=== PATIENT | female | born 1980 | race Two or more races ===

== ENCOUNTER 2016-11-03 16:01 | Inpatient (IN) | payer MEDICAID ==
[~2016-11-03] VITALS: Ht 175.3 cm; Wt 60.0 kg
[2016-11-03 17:25] LABS: Basophils # (auto) 0 uL; Basophils % (auto) 0.4 % (0.0-2.0); DEFINITIVE VIEW TRANSMISSION; Eosinophils # (auto) 0 uL; Eosinophils % (auto) 0.3 % (0.0-7.0); Hematocrit 33.1 % (36.0-46.0); Hemoglobin 10.2 g/dL (12.2-16.2); Lymphocytes # (auto) 1.3 uL; Lymphocytes % (auto) 14.2 % (10.0-50.0); Mean Corpuscular Hemoglobin 21.5 pg (28.0-32.0); Mean Corpuscular Hgb Conc. 30.9 g/dL (32.0-36.0); Mean Corpuscular Volume 69.6 fL (80.0-100.0); Mean Platelet Volume 8.1 fL (7.4-10.4); Monocytes # (auto) 0.5 uL; Monocytes % (auto) 5.3 % (0.0-12.0); Neutrophils # (auto) 7.3 uL; Neutrophils % (auto) 79.8 % (37.0-80.0); Platelet Count (auto) 372 10^3/uL (140-450); Red Cell Distribution Width 16.6 % (11.6-16.0); White Blood Cell 9.2 10^3/uL (4.4-10.8)
[2016-11-03 17:58] LABS: Albumin 3.7 g/dL (3.4-5.0); Alkaline Phosphatase 99 U/L (45-117); Anion Gap 7 (5-15); Aspartate Aminotransferase 14 U/L (15-37); BUN/Creatinine Ratio 17.9; Bilirubin, Total 0.8 mg/dL (0.2-1.0); Blood Urea Nitrogen 12 mg/dL (7-18); Calcium 8.6 mg/dL (8.5-10.1); Carbon Dioxide 28 mmol/L (21-32); Chloride 105 mmol/L (98-107); GFR African American 130 mL/min; GFR Non-African American 107 mL/min; Glucose 96 mg/dL (74-106); Potassium 4.2 mmol/L (3.5-5.1); Sodium 140 mmol/L (136-145); Total Protein 8.5 g/dL (6.4-8.2)
[2016-11-03] MEDS ORDERED: LIDOCAINE W/ EPINEPHRINE 1% 20ML VIAL SC ONE (22:15)
[2016-11-03] MEDS ORDERED: LORazepam 2MG/ML-1ML VIAL ONE (22:31)
[2016-11-03] MEDS ORDERED: HYDROmorphone HCL 2 MG/ML VL ONE (22:52)
[2016-11-03] MEDS ORDERED: ONDANSETRON HCL 4 MG/2 ML VIAL ONE (22:55)
[2016-11-03] MEDS ORDERED: LORazepam 2MG/ML-1ML VIAL IV ONE (23:00)
[2016-11-03] MEDS ORDERED: HYDROmorphone HCL 2 MG/ML VL IV ONE (23:00)
[2016-11-03] MEDS ORDERED: ONDANSETRON HCL 4 MG/2 ML VIAL IV ONE (23:00)
[2016-11-04] VITALS (7 sets, daily range): BP systolic 101–113; BP diastolic 66–85
[2016-11-04] MEDS ORDERED: TEMAZEPAM 15 MG CAP PO PRN (02:30)
[2016-11-04] MEDS ORDERED: ACETAMINOPHEN 325 MG TAB PO PRN (02:30)
[2016-11-04] MEDS ORDERED: MORPHINE SULF INJ 2 MG/ML SYRINGE 1ML IV PRN (02:30)
[2016-11-04] MEDS ORDERED: NITROGLYCERIN 0.4 MG SL TAB SL PRN (02:30)
[2016-11-04 02:47] LABS: Urine Bilirubin Negative (Negative); Urine Color Yellow (Yellow); Urine Glucose Normal (Normal); Urine Ketone TRACE (Negative); Urine Mucus FEW (None Seen); Urine RBC 235 /hpf (0 - 4); Urine Squamous Epithelial Cell FEW /hpf (<5); Urine Urobilinogen Normal (Negative); Urine WBC Clumps PRESENT /hpf (None Seen)
[2016-11-04 02:48] LABS: Urine Blood 2+ /uL (Negative); Urine Nitrite POSITIVE (Negative)
[2016-11-04] MEDS: SODIUM CHLORIDE 0.9% 1,000 ML IV SCH ×2 (03:17→19:40)
[2016-11-04] MEDS ORDERED: IBUP800T24 PO (05:51)
[2016-11-04] MEDS: FAMOTIDINE 20 MG TAB PO SCH ×2 (09:06→21:19)
[2016-11-04] MEDS: ENOXAPARIN SOD 40 MG/0.4 ML SYRINGE SC SCH (09:07)
[2016-11-04] MEDS ORDERED: ENOXAPARIN SOD 30 MG/0.3 ML SYRINGE SC SCH (10:00)
[2016-11-05] VITALS (7 sets, daily range): BP systolic 94–107; BP diastolic 58–71
[2016-11-05 06:26] LABS: Basophils # (auto) 0 uL; Basophils % (auto) 0.7 % (0.0-2.0); DEFINITIVE VIEW TRANSMISSION; Eosinophils # (auto) 0.1 uL; Eosinophils % (auto) 1.5 % (0.0-7.0); Hematocrit 34.6 % (36.0-46.0); Hemoglobin 10.6 g/dL (12.2-16.2); Lymphocytes # (auto) 1.2 uL; Lymphocytes % (auto) 23.3 % (10.0-50.0); Mean Corpuscular Hemoglobin 21.6 pg (28.0-32.0); Mean Corpuscular Hgb Conc. 30.5 g/dL (32.0-36.0); Mean Corpuscular Volume 70.7 fL (80.0-100.0); Mean Platelet Volume 8.4 fL (7.4-10.4); Monocytes # (auto) 0.4 uL; Monocytes % (auto) 7.4 % (0.0-12.0); Neutrophils # (auto) 3.4 uL; Neutrophils % (auto) 67.1 % (37.0-80.0); Platelet Count (auto) 344 10^3/uL (140-450); Red Cell Distribution Width 16.3 % (11.6-16.0); White Blood Cell 5.1 10^3/uL (4.4-10.8)
[2016-11-05 06:43] LABS: Albumin 3.7 g/dL (3.4-5.0); BUN/Creatinine Ratio 13.4; Calcium 8.6 mg/dL (8.5-10.1); Potassium 3.8 mmol/L (3.5-5.1)
[2016-11-05 06:46] LABS: Bilirubin, Total 1.1 mg/dL (0.2-1.0); Total Protein 8.6 g/dL (6.4-8.2)
[2016-11-05] MEDS: ENOXAPARIN SOD 40 MG/0.4 ML SYRINGE SC SCH (09:07)
[2016-11-05] MEDS: FAMOTIDINE 20 MG TAB PO SCH ×2 (09:07→20:02)
[2016-11-05] MEDS: SODIUM CHLORIDE 0.9% 1,000 ML IV SCH (12:39)
[2016-11-05] MEDS: HYDROcodone-ACET 5/325MG TAB PO PRN (17:19)
[2016-11-05] MEDS: MORPHINE SULF INJ 2 MG/ML SYRINGE 1ML IV PRN (20:03)
[2016-11-06] MEDS: SODIUM CHLORIDE 0.9% 1,000 ML IV SCH ×2 (04:10→21:04)
[2016-11-06 04:47] VITALS: BP 101/69
[2016-11-06 08:50] VITALS: BP 118/75
[2016-11-06] MEDS: ENOXAPARIN SOD 40 MG/0.4 ML SYRINGE SC SCH (10:38)
[2016-11-06] MEDS: FAMOTIDINE 20 MG TAB PO SCH ×2 (10:38→22:38)
[2016-11-06 12:49] VITALS: BP 118/79
[2016-11-06] MEDS ORDERED: GASTROGRAFIN 30 ML SOL ONE (13:08)
[2016-11-06] MEDS ORDERED: IOHEXOL 300 MG/ML 100ML BOTTLE IJ ONE (13:08)
[2016-11-06] MEDS: HYDROcodone-ACET 5/325MG TAB PO PRN ×2 (13:44→21:09)
[2016-11-06] MEDS: MORPHINE SULF INJ 2 MG/ML SYRINGE 1ML IV PRN (16:26)
[2016-11-06] MEDS: HYDROmorphone HCL 2 MG/ML VL IV PRN ×2 (17:46→22:38)
[2016-11-06 20:10] VITALS: BP 120/78
[2016-11-06] MEDS: ONDANSETRON HCL 4 MG/2 ML VIAL IV PRN (20:55)
[2016-11-06 22:00] VITALS: BP 120/78
[2016-11-07 05:00] VITALS: BP 90/53
[2016-11-07] MEDS: ONDANSETRON HCL 4 MG/2 ML VIAL IV PRN ×2 (05:33→10:08)
[2016-11-07] MEDS: SODIUM CHLORIDE 0.9% 1,000 ML IV SCH (05:41)
[2016-11-07] MEDS: HYDROcodone-ACET 5/325MG TAB PO PRN (06:00)
[2016-11-07 06:47] LABS: DEFINITIVE VIEW TRANSMISSION; Hemoglobin 10.3 g/dL (12.2-16.2); Mean Corpuscular Hemoglobin 21.9 pg (28.0-32.0); Mean Corpuscular Hgb Conc. 31.3 g/dL (32.0-36.0); Mean Corpuscular Volume 70.1 fL (80.0-100.0); Mean Platelet Volume 8.9 fL (7.4-10.4); Platelet Count (auto) 345 10^3/uL (140-450); Red Cell Distribution Width 16.2 % (11.6-16.0); SUSPECT VIEW TRANSMISSION; White Blood Cell 24.6 10^3/uL (4.4-10.8)
[2016-11-07 07:12] LABS: Metamyelocytes % 0; Myelocytes % 0; Promyelocytes % 0; Reactive Lymphocytes 0
[2016-11-07 07:18] LABS: Albumin 3.5 g/dL (3.4-5.0); Potassium 3.6 mmol/L (3.5-5.1)
[2016-11-07 07:25] LABS: BUN/Creatinine Ratio 9.1; Bilirubin, Total 1.8 mg/dL (0.2-1.0); Calcium 8.7 mg/dL (8.5-10.1); Total Protein 8.3 g/dL (6.4-8.2)
[2016-11-07 09:00] VITALS: BP 110/66
[2016-11-07] MEDS: FAMOTIDINE 20 MG TAB PO SCH (10:08)
[2016-11-07] MEDS: ENOXAPARIN SOD 40 MG/0.4 ML SYRINGE SC SCH (10:09)
[2016-11-07 10:31] LABS: Platelet Estimate Adequate
[2016-11-07 10:34] LABS: Anisocytosis Moderate; Microcytosis Moderate
[2016-11-07 11:12] LABS: DEFINITIVE VIEW TRANSMISSION; Hematocrit 31.2 % (36.0-46.0); Hemoglobin 9.8 g/dL (12.2-16.2); Mean Corpuscular Hemoglobin 21.8 pg (28.0-32.0); Mean Corpuscular Hgb Conc. 31.4 g/dL (32.0-36.0); Mean Corpuscular Volume 69.6 fL (80.0-100.0); Mean Platelet Volume 8.3 fL (7.4-10.4); Platelet Count (auto) 290 10^3/uL (140-450); Red Cell Distribution Width 16.3 % (11.6-16.0); SUSPECT VIEW TRANSMISSION; White Blood Cell 19.1 10^3/uL (4.4-10.8)
[2016-11-07 11:21] LABS: Metamyelocytes % 0; Myelocytes % 0; Promyelocytes % 0; Reactive Lymphocytes 0
[2016-11-07 13:00] VITALS: BP 97/57
[2016-11-07 13:53] LABS: Microcytosis Marked; Platelet Estimate Adequate
[2016-11-07 13:54] LABS: Anisocytosis Moderate; Hypochromia Moderate; Ovalocytes FEW
[2016-11-07 13:55] LABS: Burr Cells FEW
[2016-11-07 17:47] VITALS: BP 98/60
[2016-11-07 17:54] VITALS: BP 98/60
== END 2016-11-07 19:09 | disposition home or self-care (01) | DRG 143 ==
LOC: ER 16:09 → TELE 16:10 → TELE-WESTW 11-04 04:20
PROVIDERS: ADMIT Nurse Practitioner; ATTEND Internal Medicine
DX: J93.83 Other pneumothorax (principal); N13.2 Hydronephrosis with renal and ureteral calculous obstruction; N39.0 Urinary tract infection, site not specified; D50.9 Iron deficiency anemia, unspecified; Z83.3 Family history of diabetes mellitus
CPT/HCPCS: 32551; 36415; 71010; 71020; 74177; 76775; 80053; 81001; 81025; 82728; 84484; 85007; 85025; 85027; 93005; 96374; 96375; 99291; C1751; J2405

== ENCOUNTER 2016-11-23 09:21 | Inpatient (IN) | payer MEDICAID ==
[~2016-11-23] VITALS: Ht 175.3 cm; Wt 60.4 kg
[~2016-11-23 09:21] MED LIST: IBUP800T24 PO
[2016-11-23] MEDS ORDERED: KETOROLAC TROMETH 30 MG/ML 1ML VIAL IV ONE (10:30)
[2016-11-23] MEDS ORDERED: ALBUTEROL SULF 2.5 MG/0.5ML(0.5%) NEB SOLN NEB ONE (10:30)
[2016-11-23] MEDS ORDERED: SODIUM CHLORIDE 0.9% 1,000 ML IV ONE (10:30)
[2016-11-23 11:07] LABS: Basophils # (auto) 0 uL; Basophils % (auto) 0.7 % (0.0-2.0); DEFINITIVE VIEW TRANSMISSION; Eosinophils # (auto) 0 uL; Eosinophils % (auto) 0.6 % (0.0-7.0); Hematocrit 28.9 % (36.0-46.0); Hemoglobin 9.1 g/dL (12.2-16.2); Lymphocytes # (auto) 1.2 uL; Lymphocytes % (auto) 19.9 % (10.0-50.0); Mean Corpuscular Hgb Conc. 31.4 g/dL (32.0-36.0); Mean Corpuscular Volume 70.2 fL (80.0-100.0); Mean Platelet Volume 7.9 fL (7.4-10.4); Monocytes # (auto) 0.4 uL; Monocytes % (auto) 6.8 % (0.0-12.0); Neutrophils # (auto) 4.2 uL; Platelet Count (auto) 507 10^3/uL (140-450); Red Cell Distribution Width 18.8 % (11.6-16.0); White Blood Cell 5.9 10^3/uL (4.4-10.8)
[2016-11-23 11:23] LABS: Albumin 3.4 g/dL (3.4-5.0); Alkaline Phosphatase 107 U/L (45-117); Anion Gap 8 (5-15); Aspartate Aminotransferase 15 U/L (15-37); BUN/Creatinine Ratio 19.2; Bilirubin, Total 1.1 mg/dL (0.2-1.0); Blood Urea Nitrogen 10 mg/dL (7-18); Calcium 8.5 mg/dL (8.5-10.1); Carbon Dioxide 27 mmol/L (21-32); Chloride 103 mmol/L (98-107); GFR African American 173 mL/min; GFR Non-African American 143 mL/min; Glucose 95 mg/dL (74-106); Potassium 3.8 mmol/L (3.5-5.1); Sodium 138 mmol/L (136-145); Total Protein 7.9 g/dL (6.4-8.2)
[2016-11-23] MEDS ORDERED: PROMETHAZINE HCL 25 MG/ML 1ML IV PRN (13:15)
[2016-11-23] MEDS ORDERED: NITROGLYCERIN 0.4 MG SL TAB SL PRN (13:15)
[2016-11-23] MEDS ORDERED: ACETAMINOPHEN 500 MG TAB PO PRN (13:15)
[2016-11-23] MEDS ORDERED: ALBUTEROL SULF 2.5 MG/0.5ML(0.5%) NEB SOLN NEB PRN (13:15)
[2016-11-23] MEDS ORDERED: TEMAZEPAM 15 MG CAP PO PRN (13:15)
[2016-11-23] MEDS ORDERED: MORPHINE SULF INJ 2 MG/ML SYRINGE 1ML IV PRN (13:15)
[2016-11-23] MEDS: SODIUM CHLORIDE 0.9% 1,000 ML IV SCH (13:44)
[2016-11-23 18:30] VITALS: BP 103/71
[2016-11-23] MEDS: ALBUTEROL SULF 2.5 MG/0.5ML(0.5%) NEB SOLN NEB SCH ×2 (19:11→23:52)
[2016-11-23 20:42] VITALS: BP 103/71
[2016-11-23 22:00] VITALS: BP 112/64
[2016-11-24] MEDS: SODIUM CHLORIDE 0.9% 1,000 ML IV SCH ×2 (02:36→16:00)
[2016-11-24] MEDS: HYDROcodone-ACET 5/325MG TAB PO PRN ×2 (02:37→16:01)
[2016-11-24 05:30] VITALS: BP 111/67
[2016-11-24] MEDS: ALBUTEROL SULF 2.5 MG/0.5ML(0.5%) NEB SOLN NEB SCH ×3 (06:00→18:27)
[2016-11-24 06:06] LABS: Basophils # (auto) 0 uL; Basophils % (auto) 0.6 % (0.0-2.0); DEFINITIVE VIEW TRANSMISSION; Eosinophils # (auto) 0.1 uL; Eosinophils % (auto) 0.9 % (0.0-7.0); Hematocrit 28.1 % (36.0-46.0); Hemoglobin 8.8 g/dL (12.2-16.2); Lymphocytes # (auto) 1.4 uL; Lymphocytes % (auto) 22.9 % (10.0-50.0); Mean Corpuscular Hgb Conc. 31.4 g/dL (32.0-36.0); Mean Corpuscular Volume 70.2 fL (80.0-100.0); Mean Platelet Volume 8.2 fL (7.4-10.4); Monocytes # (auto) 0.5 uL; Monocytes % (auto) 8.3 % (0.0-12.0); Neutrophils # (auto) 4.1 uL; Neutrophils % (auto) 67.3 % (37.0-80.0); Platelet Count (auto) 427 10^3/uL (140-450); Red Cell Distribution Width 18.8 % (11.6-16.0)
[2016-11-24] MEDS ORDERED: LEVO-28 PO (07:29)
[2016-11-24 09:00] VITALS: BP 107/64
[2016-11-24 13:00] VITALS: BP 113/73
[2016-11-24] MEDS ORDERED: LIDOCAINE 1% HCL (LOCAL ANESTH.) INJ 20ML MDV ONE (14:16)
[2016-11-24 14:27] LABS: INR 1.01 (0.9-1.15); Partial Thromboplastin Time 26.4 sec (22.64-33.71)
[2016-11-24] MEDS ORDERED: MIDAZOLAM HCL 1MG/1ML-2 ML VIAL ONE (14:31)
[2016-11-24] MEDS ORDERED: HYDROmorphone HCL 2 MG/ML VL ONE (14:51)
[2016-11-24] MEDS ORDERED: HYDROmorphone HCL 2 MG/ML VL IV ONE (14:55)
[2016-11-24] MEDS ORDERED: MIDAZOLAM HCL 1MG/1ML-2 ML VIAL IV ONE (15:15)
[2016-11-24 16:47] VITALS: BP 117/77
[2016-11-24] MEDS: MORPHINE SULF INJ 2 MG/ML SYRINGE 1ML IV PRN (20:12)
[2016-11-24 21:33] VITALS: BP 119/82
[2016-11-25] MEDS: ALBUTEROL SULF 2.5 MG/0.5ML(0.5%) NEB SOLN NEB SCH ×5 (00:28→23:58)
[2016-11-25] MEDS: MORPHINE SULF INJ 2 MG/ML SYRINGE 1ML IV PRN ×5 (00:56→21:01)
[2016-11-25 04:31] VITALS: BP 108/73
[2016-11-25] MEDS: SODIUM CHLORIDE 0.9% 1,000 ML IV SCH ×2 (05:39→18:33)
[2016-11-25] MEDS: HYDROcodone-ACET 5/325MG TAB PO PRN (08:54)
[2016-11-25 09:00] VITALS: BP 139/72
[2016-11-25 13:00] VITALS: BP 113/77
[2016-11-25 16:27] VITALS: BP 113/74
[2016-11-25] MEDS: DOCUSATE SOD 100 MG CAP PO SCH (21:01)
[2016-11-25] MEDS: MILK OF MAGNESIA 30ML SUSP PO PRN (21:02)
[2016-11-25 21:32] VITALS: BP 124/78
[2016-11-26 04:32] VITALS: BP 129/68
[2016-11-26] MEDS: ALBUTEROL SULF 2.5 MG/0.5ML(0.5%) NEB SOLN NEB SCH ×3 (06:17→19:13)
[2016-11-26] MEDS: SODIUM CHLORIDE 0.9% 1,000 ML IV SCH ×2 (07:53→21:13)
[2016-11-26] MEDS: MORPHINE SULF INJ 2 MG/ML SYRINGE 1ML IV PRN ×2 (08:08→21:58)
[2016-11-26 09:00] VITALS: BP 100/65
[2016-11-26] MEDS: DOCUSATE SOD 100 MG CAP PO SCH ×2 (10:24→21:57)
[2016-11-26] MEDS: MILK OF MAGNESIA 30ML SUSP PO PRN (10:24)
[2016-11-26 13:00] VITALS: BP 101/60
[2016-11-26 17:00] VITALS: BP 107/78
[2016-11-26 22:00] VITALS: BP 107/67
[2016-11-27] MEDS: ALBUTEROL SULF 2.5 MG/0.5ML(0.5%) NEB SOLN NEB SCH ×4 (00:34→18:48)
[2016-11-27 05:44] VITALS: BP 109/69
[2016-11-27 08:00] VITALS: BP 111/67
[2016-11-27] MEDS: DOCUSATE SOD 100 MG CAP PO SCH ×2 (09:26→21:49)
[2016-11-27] MEDS: SODIUM CHLORIDE 0.9% 1,000 ML IV SCH ×2 (10:33→23:43)
[2016-11-27 13:00] VITALS: BP 102/73
[2016-11-27 17:00] VITALS: BP 115/79
[2016-11-27] MEDS: LORazepam 0.5 MG TAB PO PRN (17:24)
[2016-11-27 22:00] VITALS: BP 114/80
[2016-11-28] MEDS: ALBUTEROL SULF 2.5 MG/0.5ML(0.5%) NEB SOLN NEB SCH ×5 (00:27→20:38)
[2016-11-28 05:00] VITALS: BP 108/70
[2016-11-28] MEDS ORDERED: IOHEXOL 300 MG/ML 100ML BOTTLE IJ ONE (08:58)
[2016-11-28 09:00] VITALS: BP 114/73
[2016-11-28] MEDS: DOCUSATE SOD 100 MG CAP PO SCH ×2 (10:00→19:34)
[2016-11-28 13:00] VITALS: BP 101/60
[2016-11-28] MEDS: SODIUM CHLORIDE 0.9% 1,000 ML IV SCH (13:13)
[2016-11-28] MEDS ORDERED: MIDAZOLAM HCL 1MG/1ML-2 ML VIAL ONE (14:52)
[2016-11-28] MEDS ORDERED: FLUMAZENIL 0.1 MG/ML INJ 10ML MDV IV ONE (14:52)
[2016-11-28] MEDS ORDERED: NALOXONE HCL 0.4 MG/ML VIAL ONE (14:52)
[2016-11-28] MEDS ORDERED: fentaNYL CITRATE 100 MCG/2 ML VL ONE (14:52)
[2016-11-28] MEDS ORDERED: LIDOCAINE 1% HCL (LOCAL ANESTH.) INJ 20ML MDV ONE (15:05)
[2016-11-28 17:00] VITALS: BP 104/65
[2016-11-28] MEDS: MORPHINE SULF INJ 2 MG/ML SYRINGE 1ML IV PRN (20:11)
[2016-11-28 22:00] VITALS: BP 114/69
[2016-11-29] MEDS: SODIUM CHLORIDE 0.9% 1,000 ML IV SCH ×2 (02:33→17:12)
[2016-11-29 02:50] VITALS: BP 114/69
[2016-11-29 05:00] VITALS: BP 111/71
[2016-11-29] MEDS: ALBUTEROL SULF 2.5 MG/0.5ML(0.5%) NEB SOLN NEB SCH ×3 (06:18→18:00)
[2016-11-29 08:08] VITALS: BP 100/72
[2016-11-29] MEDS: DOCUSATE SOD 100 MG CAP PO SCH ×2 (10:23→21:49)
[2016-11-29 11:47] VITALS: BP 103/66
[2016-11-29 16:27] VITALS: BP 104/63
[2016-11-29 21:46] VITALS: BP 96/73
[2016-11-29] MEDS: MORPHINE SULF INJ 2 MG/ML SYRINGE 1ML IV PRN (22:41)
[2016-11-30] MEDS: ALBUTEROL SULF 2.5 MG/0.5ML(0.5%) NEB SOLN NEB SCH ×4 (00:26→18:25)
[2016-11-30] MEDS: SODIUM CHLORIDE 0.9% 1,000 ML IV SCH ×2 (05:13→18:10)
[2016-11-30 05:21] VITALS: BP 103/65
[2016-11-30 08:03] VITALS: BP 105/64
[2016-11-30] MEDS: DOCUSATE SOD 100 MG CAP PO SCH ×2 (09:48→21:05)
[2016-11-30 11:26] VITALS: BP 105/65
[2016-11-30 16:00] VITALS: BP 110/66
[2016-11-30] MEDS: BOOST PLUS 8 ounce PO SCH (21:06)
[2016-11-30 21:26] VITALS: BP 103/63
[2016-12-01 04:58] VITALS: BP 100/62
[2016-12-01] MEDS: BOOST PLUS 8 ounce PO SCH ×3 (06:28→21:28)
[2016-12-01] MEDS: ALBUTEROL SULF 2.5 MG/0.5ML(0.5%) NEB SOLN NEB SCH ×4 (06:39→18:53)
[2016-12-01] MEDS: SODIUM CHLORIDE 0.9% 1,000 ML IV SCH ×2 (07:53→21:27)
[2016-12-01 09:15] VITALS: BP 104/68
[2016-12-01] MEDS: DOCUSATE SOD 100 MG CAP PO SCH ×2 (10:16→21:27)
[2016-12-01 13:00] VITALS: BP 98/59
[2016-12-01 17:00] VITALS: BP 95/61
[2016-12-01] MEDS: MORPHINE SULF INJ 2 MG/ML SYRINGE 1ML IV PRN (21:27)
[2016-12-01 22:00] VITALS: BP 114/69
[2016-12-01 22:36] VITALS: BP 95/61
[2016-12-02] MEDS: ALBUTEROL SULF 2.5 MG/0.5ML(0.5%) NEB SOLN NEB SCH ×4 (00:19→19:36)
[2016-12-02 05:00] VITALS: BP 102/63
[2016-12-02] MEDS: BOOST PLUS 8 ounce PO SCH ×3 (06:00→21:38)
[2016-12-02 06:35] LABS: BUN/Creatinine Ratio 26.5; Calcium 8.4 mg/dL (8.5-10.1); Potassium 3.7 mmol/L (3.5-5.1)
[2016-12-02 09:00] VITALS: BP 109/71
[2016-12-02] MEDS: DOCUSATE SOD 100 MG CAP PO SCH ×2 (10:29→21:38)
[2016-12-02] MEDS: SODIUM CHLORIDE 0.9% 1,000 ML IV SCH ×2 (11:16→23:40)
[2016-12-02] MEDS: LORazepam 0.5 MG TAB PO PRN ×2 (11:37→11:43)
[2016-12-02 13:00] VITALS: BP 107/74
[2016-12-02 16:25] VITALS: BP 106/72
[2016-12-02 22:00] VITALS: BP 110/62
[2016-12-03 05:00] VITALS: BP 108/69
[2016-12-03 05:21] LABS: Basophils # (auto) 0.1 uL; DEFINITIVE VIEW TRANSMISSION; Eosinophils # (auto) 0.3 uL; Eosinophils % (auto) 6.2 % (0.0-7.0); Hematocrit 31.3 % (36.0-46.0); Hemoglobin 9.8 g/dL (12.2-16.2); Lymphocytes # (auto) 1.5 uL; Lymphocytes % (auto) 27.8 % (10.0-50.0); Mean Corpuscular Hemoglobin 22.1 pg (28.0-32.0); Mean Corpuscular Hgb Conc. 31.5 g/dL (32.0-36.0); Mean Corpuscular Volume 70.2 fL (80.0-100.0); Mean Platelet Volume 8.8 fL (7.4-10.4); Monocytes # (auto) 0.4 uL; Monocytes % (auto) 8.3 % (0.0-12.0); Neutrophils % (auto) 56.7 % (37.0-80.0); Platelet Count (auto) 235 10^3/uL (140-450); Red Cell Distribution Width 18.5 % (11.6-16.0); SUSPECT VIEW TRANSMISSION; White Blood Cell 5.3 10^3/uL (4.4-10.8)
[2016-12-03 05:42] LABS: BUN/Creatinine Ratio 26.5; Calcium 8.4 mg/dL (8.5-10.1); Potassium 3.9 mmol/L (3.5-5.1)
[2016-12-03] MEDS: BOOST PLUS 8 ounce PO SCH ×3 (06:00→22:00)
[2016-12-03] MEDS: ALBUTEROL SULF 2.5 MG/0.5ML(0.5%) NEB SOLN NEB SCH ×4 (06:58→18:45)
[2016-12-03 09:00] VITALS: BP 114/72
[2016-12-03] MEDS: DOCUSATE SOD 100 MG CAP PO SCH ×2 (11:07→22:12)
[2016-12-03 13:00] VITALS: BP 107/66
[2016-12-03] MEDS: SODIUM CHLORIDE 0.9% 1,000 ML IV SCH (13:18)
[2016-12-03] MEDS: LORazepam 0.5 MG TAB PO PRN ×2 (13:25→22:12)
[2016-12-03 17:07] VITALS: BP 121/72
[2016-12-03 19:21] LABS: INR 1.01 (0.9-1.15); Partial Thromboplastin Time 25.9 sec (22.64-33.71)
[2016-12-03 22:03] VITALS: BP 118/72
[2016-12-04] MEDS: MORPHINE SULF INJ 2 MG/ML SYRINGE 1ML IV PRN ×4 (00:21→14:36)
[2016-12-04] MEDS: SODIUM CHLORIDE 0.9% 1,000 ML IV SCH ×2 (02:44→15:53)
[2016-12-04 04:49] VITALS: BP 99/71
[2016-12-04 05:36] LABS: Basophils # (auto) 0 uL; Basophils % (auto) 0.9 % (0.0-2.0); DEFINITIVE VIEW TRANSMISSION; Eosinophils # (auto) 0.4 uL; Eosinophils % (auto) 6.8 % (0.0-7.0); Hematocrit 30.9 % (36.0-46.0); Lymphocytes # (auto) 1.6 uL; Lymphocytes % (auto) 29.8 % (10.0-50.0); Mean Corpuscular Hemoglobin 22.4 pg (28.0-32.0); Mean Corpuscular Hgb Conc. 32.2 g/dL (32.0-36.0); Mean Corpuscular Volume 69.5 fL (80.0-100.0); Mean Platelet Volume 8.9 fL (7.4-10.4); Monocytes # (auto) 0.5 uL; Monocytes % (auto) 8.3 % (0.0-12.0); Neutrophils % (auto) 54.2 % (37.0-80.0); Platelet Count (auto) 236 10^3/uL (140-450); White Blood Cell 5.5 10^3/uL (4.4-10.8)
[2016-12-04] MEDS: BOOST PLUS 8 ounce PO SCH ×3 (06:00→22:00)
[2016-12-04] MEDS: ALBUTEROL SULF 2.5 MG/0.5ML(0.5%) NEB SOLN NEB SCH ×4 (07:30→18:32)
[2016-12-04 09:00] VITALS: BP 103/67
[2016-12-04] MEDS ORDERED: NEOSTIGMINE 1 MG/ML INJ (10mg/10ML VIAL) IV ONE (09:00)
[2016-12-04] MEDS ORDERED: GLYCOPYRROLATE 0.2 MG/ML 1ML VIAL IV ONE (09:00)
[2016-12-04] MEDS: DOCUSATE SOD 100 MG CAP PO SCH ×2 (10:00→22:00)
[2016-12-04] MEDS ORDERED: MIDAZOLAM HCL 1MG/1ML-2 ML VIAL ONE ×2 (10:57→11:47)
[2016-12-04] MEDS ORDERED: fentaNYL CITRATE 100 MCG/2 ML VL ONE (11:47)
[2016-12-04] MEDS ORDERED: MEPERIDINE HCL (50 MG/ML) 1 ML VIAL ONE (11:47)
[2016-12-04] MEDS ORDERED: ceFAZolin 1GM/50ML D5W 50 ML IV ONE (11:48)
[2016-12-04] MEDS ORDERED: DEXAMETHASONE SOD PHOS 10MG/1ML VIAL INJ ONE (12:00)
[2016-12-04] MEDS ORDERED: PROPOFOL 10 MG/ML 20 ML IV ONE (12:01)
[2016-12-04] MEDS ORDERED: BUPIVACAINE 0.25% INJ 50ML VIAL ONE (13:01)
[2016-12-04] MEDS ORDERED: MIDAZOLAM HCL 1MG/1ML-2 ML VIAL IV PRN (14:00)
[2016-12-04] MEDS ORDERED: ePHEDrine SULFATE 50 MG/ML AMP IV PRN (14:00)
[2016-12-04] MEDS ORDERED: LABETALOL HCL 5 MG/ML 4ML SYRINGE IV PRN (14:00)
[2016-12-04] MEDS: ONDANSETRON HCL 4 MG/2 ML VIAL IV ONE ×2 (14:00→15:27)
[2016-12-04] MEDS: HYDROmorphone HCL 2 MG/ML VL IV PRN ×2 (14:12→14:27)
[2016-12-04 16:54] VITALS: BP 118/76
[2016-12-04 21:20] VITALS: BP 118/76
[2016-12-04 21:49] VITALS: BP 112/65
[2016-12-04] MEDS: LORazepam 0.5 MG TAB PO PRN (22:14)
[2016-12-05] MEDS: ALBUTEROL SULF 2.5 MG/0.5ML(0.5%) NEB SOLN NEB SCH ×4 (00:40→19:05)
[2016-12-05] MEDS: MORPHINE SULF INJ 2 MG/ML SYRINGE 1ML IV PRN ×3 (04:08→13:54)
[2016-12-05 05:00] VITALS: BP 111/66
[2016-12-05] MEDS: SODIUM CHLORIDE 0.9% 1,000 ML IV SCH ×2 (05:22→17:48)
[2016-12-05 05:59] LABS: Basophils # (auto) 0 uL; Basophils % (auto) 0.4 % (0.0-2.0); DEFINITIVE VIEW TRANSMISSION; Eosinophils # (auto) 0 uL; Hematocrit 28.7 % (36.0-46.0); Hemoglobin 9.1 g/dL (12.2-16.2); Mean Corpuscular Hemoglobin 22.4 pg (28.0-32.0); Mean Corpuscular Hgb Conc. 31.8 g/dL (32.0-36.0); Mean Corpuscular Volume 70.6 fL (80.0-100.0); Mean Platelet Volume 9.6 fL (7.4-10.4); Monocytes # (auto) 0.6 uL; Monocytes % (auto) 7.8 % (0.0-12.0); Neutrophils # (auto) 6.6 uL; Neutrophils % (auto) 79.8 % (37.0-80.0); Platelet Count (auto) 205 10^3/uL (140-450); Red Cell Distribution Width 18.7 % (11.6-16.0); White Blood Cell 8.2 10^3/uL (4.4-10.8)
[2016-12-05] MEDS: BOOST PLUS 8 ounce PO SCH ×3 (06:00→20:47)
[2016-12-05 06:22] LABS: Albumin 2.7 g/dL (3.4-5.0); Bilirubin, Total 1.2 mg/dL (0.2-1.0); Calcium 8.2 mg/dL (8.5-10.1); Potassium 4.1 mmol/L (3.5-5.1); Total Protein 6.8 g/dL (6.4-8.2)
[2016-12-05] MEDS: LORazepam 0.5 MG TAB PO PRN ×2 (06:34→13:02)
[2016-12-05 09:00] VITALS: BP 109/66
[2016-12-05] MEDS: DOCUSATE SOD 100 MG CAP PO SCH ×2 (10:00→20:46)
[2016-12-05 13:00] VITALS: BP 126/75
[2016-12-05 17:00] VITALS: BP 125/85
[2016-12-05] MEDS: MORPHINE SULFATE 4 MG/ML SYRG IV PRN ×2 (17:49→23:01)
[2016-12-05 22:00] VITALS: BP 122/71
[2016-12-06] MEDS: ALBUTEROL SULF 2.5 MG/0.5ML(0.5%) NEB SOLN NEB SCH ×4 (01:27→19:13)
[2016-12-06] MEDS: MORPHINE SULFATE 4 MG/ML SYRG IV PRN ×6 (04:37→23:01)
[2016-12-06 05:00] VITALS: BP 120/75
[2016-12-06] MEDS ORDERED: SODIUM CHLORIDE 0.9 % NEB SOLN 3ML NEB ONE ×2 (05:06→11:46)
[2016-12-06] MEDS: BOOST PLUS 8 ounce PO SCH ×3 (05:25→21:31)
[2016-12-06 09:00] VITALS: BP 120/78
[2016-12-06] MEDS: DOCUSATE SOD 100 MG CAP PO SCH ×2 (10:00→21:31)
[2016-12-06 13:00] VITALS: BP 120/73
[2016-12-06] MEDS: SODIUM CHLORIDE 0.9% 1,000 ML IV SCH ×2 (13:54→21:13)
[2016-12-06 17:00] VITALS: BP 130/99
[2016-12-06 22:00] VITALS: BP 111/69
[2016-12-07] MEDS: ALBUTEROL SULF 2.5 MG/0.5ML(0.5%) NEB SOLN NEB SCH ×4 (00:36→18:30)
[2016-12-07 05:00] VITALS: BP 111/70
[2016-12-07] MEDS: BOOST PLUS 8 ounce PO SCH ×3 (06:08→20:47)
[2016-12-07 07:33] VITALS: BP 117/77
[2016-12-07] MEDS: MORPHINE SULFATE 4 MG/ML SYRG IV PRN (08:23)
[2016-12-07] MEDS: DOCUSATE SOD 100 MG CAP PO SCH ×2 (09:19→20:48)
[2016-12-07 12:01] VITALS: BP 123/78
[2016-12-07] MEDS ORDERED: KETOROLAC TROMETH 30 MG/ML 1ML VIAL IV PRN (12:30)
[2016-12-07] MEDS ORDERED: LACTULOSE 20Gm/30ML SOLN PO PRN (12:30)
[2016-12-07] MEDS: SODIUM CHLORIDE 0.9% 1,000 ML IV SCH (13:00)
[2016-12-07] MEDS: MILK OF MAGNESIA 30ML SUSP PO PRN (15:30)
[2016-12-07 15:47] VITALS: BP 109/73
[2016-12-07 16:23] VITALS: BP 109/73
[2016-12-07] MEDS: LORazepam 0.5 MG TAB PO PRN (20:48)
[2016-12-07 22:38] VITALS: BP 114/73
[2016-12-08] MEDS: SODIUM CHLORIDE 0.9% 1,000 ML IV SCH ×2 (00:16→12:57)
[2016-12-08 04:59] VITALS: BP 103/75
[2016-12-08] MEDS: BOOST PLUS 8 ounce PO SCH ×3 (05:22→21:38)
[2016-12-08] MEDS: HYDROcodone-ACET 5/325MG TAB PO PRN ×3 (05:22→18:52)
[2016-12-08] MEDS: ALBUTEROL SULF 2.5 MG/0.5ML(0.5%) NEB SOLN NEB SCH ×4 (06:36→19:25)
[2016-12-08 07:57] VITALS: BP 103/60
[2016-12-08] MEDS: DOCUSATE SOD 100 MG CAP PO SCH ×2 (09:34→21:38)
[2016-12-08 11:21] VITALS: BP 104/70
[2016-12-08 16:06] VITALS: BP 103/65
[2016-12-08 22:00] VITALS: BP 100/58
[2016-12-09] MEDS: ALBUTEROL SULF 2.5 MG/0.5ML(0.5%) NEB SOLN NEB SCH (00:55)
[2016-12-09] MEDS: SODIUM CHLORIDE 0.9% 1,000 ML IV SCH (02:33)
[2016-12-09] MEDS: HYDROcodone-ACET 5/325MG TAB PO PRN (04:37)
[2016-12-09 04:51] VITALS: BP 99/63
[2016-12-09] MEDS ORDERED: SODIUM CHLORIDE 0.9 % NEB SOLN 3ML NEB ONE (05:22)
[2016-12-09] MEDS: BOOST PLUS 8 ounce PO SCH (05:36)
[2016-12-09 09:14] VITALS: BP 126/84
[2016-12-09] MEDS: DOCUSATE SOD 100 MG CAP PO SCH (10:00)
== END 2016-12-09 12:04 | disposition home or self-care (01) | DRG 121 ==
LOC: ER 09:21 → TELE 09:22 → TELE-WESTW 18:18
PROVIDERS: ADMIT Internal Medicine; ATTEND Internal Medicine Pulmonary Disease
PROC: 0W9B30Z Drainage of Left Pleural Cavity with Drainage Device, Percutaneous Approach (ICD-10-PCS; principal; 2016-11-24 14:20)
PROC: 0BBL0ZZ Excision of Left Lung, Open Approach (ICD-10-PCS; 2016-12-04)
PROC: 0WP800Z Removal of Drainage Device from Chest Wall, Open Approach (ICD-10-PCS; 2016-12-04)
PROC: 3E0L3GC Introduction of Other Therapeutic Substance into Pleural Cavity, Percutaneous Approach (ICD-10-PCS; 2016-12-04)
DX: J93.0 Spontaneous tension pneumothorax (principal); E44.0 Moderate protein-calorie malnutrition; Z93.0 Tracheostomy status; N20.0 Calculus of kidney; D63.8 Anemia in other chronic diseases classified elsewhere; Z87.442 Personal history of urinary calculi; D75.89 Other specified diseases of blood and blood-forming organs; Z68.1 Body mass index [BMI] 19.9 or less, adult; Z83.3 Family history of diabetes mellitus; Z71.89 Other specified counseling; Z90.49 Acquired absence of other specified parts of digestive tract
CPT/HCPCS: 10022; 36415; 71010; 71020; 71021; 71260; 77012; 80048; 80053; 84484; 84702; 85025; 85610; 85730; 86850; 86900; 86901; 87081; 93005; 94640; 96360; 96361; 97110; 97116; 97530; 99291; A4565; C1729; J0690; J1100; J1885; J2001; J2250; J2405; J2704; J3490

== ENCOUNTER 2017-04-03 12:59 | Inpatient (IN) | payer MEDICAID ==
[~2017-04-03] VITALS: Ht 175.3 cm; Wt 61.5 kg
[~2017-04-03 12:59] MED LIST changes: +LEVO-28 PO
[2017-04-03 14:11] LABS: Basophils # (auto) 0 uL; Basophils % (auto) 0.8 % (0.0-2.0); Eosinophils # (auto) 0 uL; Eosinophils % (auto) 0.4 % (0.0-7.0); Hematocrit 35.7 % (36.0-46.0); Hemoglobin 11.2 g/dL (12.2-16.2); Lymphocytes # (auto) 1.5 uL; Lymphocytes % (auto) 24.9 % (10.0-50.0); Mean Corpuscular Hemoglobin 23.4 pg (28.0-32.0); Mean Corpuscular Hgb Conc. 31.3 g/dL (32.0-36.0); Mean Corpuscular Volume 74.9 fL (80.0-100.0); Mean Platelet Volume 7.3 fL (6.9-10.8); Monocytes # (auto) 0.4 uL; Monocytes % (auto) 6.1 % (0.0-12.0); Neutrophils % (auto) 67.8 % (37.0-80.0); Nucleated Red Blood Cells % 0.1 %; Platelet Count (auto) 348 10^3/uL (140-450); White Blood Cell 5.8 10^3/uL (4.4-10.8)
[2017-04-03 14:13] LABS: Red Cell Distribution Width 21.2 % (11.8-14.3)
[2017-04-03 14:25] LABS: Anisocytosis Slight; Hypochromia Slight; Platelet Estimate Adequate
[2017-04-03 14:32] LABS: Albumin 3.8 g/dL (3.4-5.0); Bilirubin, Total 0.8 mg/dL (0.2-1.0); Calcium 8.9 mg/dL (8.5-10.1); Potassium 3.8 mmol/L (3.5-5.1); Total Protein 8.4 g/dL (6.4-8.2)
[2017-04-03] MEDS ORDERED: LIDOCAINE 1% HCL (LOCAL ANESTH.) INJ 20ML MDV ONE (17:03)
[2017-04-03] MEDS ORDERED: LIDOCAINE 1% HCL (LOCAL ANESTH.) INJ 20ML MDV IJ ONE (17:15)
[2017-04-03] MEDS ORDERED: MORPHINE SULF INJ 2 MG/ML SYRINGE 1ML IV ONE (17:30)
[2017-04-03] MEDS ORDERED: ONDANSETRON HCL 4 MG/2 ML VIAL IV ONE (17:30)
[2017-04-03] MEDS ORDERED: MORPHINE SULF INJ 2 MG/ML SYRINGE 1ML IV PRN ×2 (17:45)
[2017-04-03] MEDS ORDERED: NITROGLYCERIN 0.4 MG SL TAB SL PRN (17:45)
[2017-04-03] MEDS ORDERED: DOCUSATE SOD 100 MG CAP PO PRN (17:45)
[2017-04-03] MEDS ORDERED: HYDROcodone-ACET 5/325MG TAB PO PRN (17:45)
[2017-04-03] MEDS ORDERED: TEMAZEPAM 15 MG CAP PO PRN (17:45)
[2017-04-03] MEDS ORDERED: ACETAMINOPHEN 325 MG TAB PO PRN (17:45)
[2017-04-03] MEDS ORDERED: ONDANSETRON HCL 4 MG/2 ML VIAL IV PRN (17:45)
[2017-04-03] MEDS ORDERED: cefTRIAXone 1GM/50ML D5W 50 ML IV ONE (18:00)
[2017-04-03] MEDS ORDERED: ALBUTEROL SULF 2.5 MG/0.5ML(0.5%) NEB SOLN NEB PRN (18:00)
[2017-04-03 18:20] LABS: Urine Bilirubin Negative (Negative); Urine Blood 3+ /uL (Negative); Urine Color Yellow (Yellow); Urine Glucose Normal (Normal); Urine Ketone Negative (Negative); Urine Mucus FEW (None Seen); Urine Nitrite POSITIVE (Negative); Urine RBC 113 /hpf (0 - 4); Urine Squamous Epithelial Cell FEW /hpf (<5); Urine Urobilinogen Normal (Negative); Urine WBC Clumps PRESENT /hpf (None Seen)
[2017-04-03 18:22] LABS: INR 1.02 (0.9-1.15); Prothrombin Time 11.1 sec (9.37-12.3)
[2017-04-03] MEDS: FAMOTIDINE 20 MG TAB PO SCH (22:14)
[2017-04-03] MEDS: SODIUM CHLOR 0.9% PF (SALINE LOCK) 10ML VIAL IV SCH (22:14)
[2017-04-04] MEDS ORDERED: CHOL500023 PO (04:14)
[2017-04-04] MEDS ORDERED: TRAM50TA2 PO (04:14)
[2017-04-04] MEDS ORDERED: FERR324T11 PO (04:14)
[2017-04-04 04:21] LABS: Basophils # (auto) 0.1 uL; Eosinophils # (auto) 0.1 uL; Eosinophils % (auto) 1.3 % (0.0-7.0); Hematocrit 32.4 % (36.0-46.0); Hemoglobin 10.2 g/dL (12.2-16.2); Lymphocytes # (auto) 1.8 uL; Lymphocytes % (auto) 33.2 % (10.0-50.0); Mean Corpuscular Hemoglobin 23.4 pg (28.0-32.0); Mean Corpuscular Hgb Conc. 31.4 g/dL (32.0-36.0); Mean Corpuscular Volume 74.5 fL (80.0-100.0); Monocytes # (auto) 0.5 uL; Monocytes % (auto) 8.3 % (0.0-12.0); Neutrophils # (auto) 3.1 uL; Neutrophils % (auto) 56.2 % (37.0-80.0); Platelet Count (auto) 286 10^3/uL (140-450); White Blood Cell 5.5 10^3/uL (4.4-10.8)
[2017-04-04 04:29] LABS: Red Cell Distribution Width 20.8 % (11.8-14.3)
[2017-04-04 04:45] LABS: Albumin 3.2 g/dL (3.4-5.0); BUN/Creatinine Ratio 15.9; Calcium 8.3 mg/dL (8.5-10.1); Potassium 3.6 mmol/L (3.5-5.1)
[2017-04-04 04:47] LABS: Bilirubin, Total 0.8 mg/dL (0.2-1.0); Total Protein 7.2 g/dL (6.4-8.2)
[2017-04-04 05:08] LABS: Platelet Estimate Adequate
[2017-04-04 05:09] LABS: Anisocytosis Slight; Hypochromia Moderate; Microcytosis Moderate; Ovalocytes FEW
[2017-04-04] MEDS: SODIUM CHLOR 0.9% PF (SALINE LOCK) 10ML VIAL IV SCH ×3 (06:29→21:46)
[2017-04-04] MEDS: cefTRIAXone 1GM/50ML D5W 50 ML IV SCH (09:30)
[2017-04-04 09:37] VITALS: BP 104/63
[2017-04-04] MEDS: FAMOTIDINE 20 MG TAB PO SCH ×2 (09:50→21:44)
[2017-04-04] MEDS: MULTIPLE VITAMIN TAB PO SCH (09:50)
[2017-04-04 15:13] VITALS: BP 104/73
[2017-04-04 16:51] VITALS: BP_SYST 103; BP_SYST 141; BP_DIAS 66; BP_DIAS 69
[2017-04-04 22:00] VITALS: BP 98/61
[2017-04-05 05:00] VITALS: BP 96/61
[2017-04-05 06:20] LABS: Basophils # (auto) 0 uL; Basophils % (auto) 0.9 % (0.0-2.0); Eosinophils # (auto) 0.1 uL; Hematocrit 36.2 % (36.0-46.0); Hemoglobin 11.3 g/dL (12.2-16.2); Lymphocytes # (auto) 1.5 uL; Lymphocytes % (auto) 30.9 % (10.0-50.0); Mean Corpuscular Hemoglobin 23.3 pg (28.0-32.0); Mean Corpuscular Hgb Conc. 31.2 g/dL (32.0-36.0); Mean Corpuscular Volume 74.8 fL (80.0-100.0); Mean Platelet Volume 7.3 fL (6.9-10.8); Monocytes # (auto) 0.4 uL; Monocytes % (auto) 7.7 % (0.0-12.0); Neutrophils # (auto) 2.8 uL; Neutrophils % (auto) 58.5 % (37.0-80.0); Platelet Count (auto) 313 10^3/uL (140-450); White Blood Cell 4.7 10^3/uL (4.4-10.8)
[2017-04-05 06:43] LABS: Albumin 3.4 g/dL (3.4-5.0); Bilirubin, Total 1.1 mg/dL (0.2-1.0); Calcium 8.3 mg/dL (8.5-10.1); Total Protein 7.9 g/dL (6.4-8.2)
[2017-04-05] MEDS: SODIUM CHLOR 0.9% PF (SALINE LOCK) 10ML VIAL IV SCH ×3 (07:43→22:00)
[2017-04-05] MEDS: cefTRIAXone 1GM/50ML D5W 50 ML IV SCH (09:15)
[2017-04-05 09:19] VITALS: BP 106/70
[2017-04-05] MEDS: MULTIPLE VITAMIN TAB PO SCH (09:58)
[2017-04-05] MEDS: FAMOTIDINE 20 MG TAB PO SCH ×2 (09:58→21:57)
[2017-04-05 13:00] VITALS: BP 103/73
[2017-04-05 13:27] LABS: Anisocytosis Slight; Hypochromia Moderate; Microcytosis Moderate
[2017-04-05 13:28] LABS: Ovalocytes FEW; Platelet Estimate Adequate; Stomatocytes Few; Tear Drop Cells FEW
[2017-04-05 17:05] VITALS: BP 102/75
[2017-04-05 22:00] VITALS: BP 97/67
[2017-04-06 04:00] VITALS: BP 102/65
[2017-04-06] MEDS: SODIUM CHLOR 0.9% PF (SALINE LOCK) 10ML VIAL IV SCH (05:10)
[2017-04-06 06:30] LABS: Albumin 3.4 g/dL (3.4-5.0); BUN/Creatinine Ratio 27.3; Bilirubin, Total 0.9 mg/dL (0.2-1.0); Calcium 8.5 mg/dL (8.5-10.1); Potassium 4.2 mmol/L (3.5-5.1); Total Protein 7.8 g/dL (6.4-8.2)
[2017-04-06 06:36] LABS: Basophils # (auto) 0.1 uL; Basophils % (auto) 1.3 % (0.0-2.0); Eosinophils # (auto) 0.2 uL; Hematocrit 35.5 % (36.0-46.0); Hemoglobin 11.1 g/dL (12.2-16.2); Lymphocytes # (auto) 1.6 uL; Lymphocytes % (auto) 29.8 % (10.0-50.0); Mean Corpuscular Hemoglobin 23.4 pg (28.0-32.0); Mean Corpuscular Hgb Conc. 31.3 g/dL (32.0-36.0); Mean Corpuscular Volume 74.7 fL (80.0-100.0); Mean Platelet Volume 7.6 fL (6.9-10.8); Monocytes # (auto) 0.4 uL; Monocytes % (auto) 7.5 % (0.0-12.0); Neutrophils # (auto) 3.2 uL; Neutrophils % (auto) 58.4 % (37.0-80.0); Nucleated Red Blood Cells % 0.1 %; Platelet Count (auto) 317 10^3/uL (140-450); White Blood Cell 5.5 10^3/uL (4.4-10.8)
[2017-04-06 06:42] LABS: Red Cell Distribution Width 20.4 % (11.8-14.3)
[2017-04-06 07:31] LABS: Anisocytosis Slight; Hypochromia Moderate; Microcytosis Moderate; Ovalocytes FEW; Platelet Estimate Adequate
[2017-04-06 08:00] VITALS: BP 102/63
== END 2017-04-06 09:35 | disposition home or self-care (01) | DRG 143 ==
LOC: ER 12:59 → TELE 13:00 → TELE-E-ADS 04-04 15:14 → TELE-CENTR 04-04 16:58
PROVIDERS: ADMIT Internal Medicine; ATTEND Internal Medicine
PROC: 0W9930Z Drainage of Right Pleural Cavity with Drainage Device, Percutaneous Approach (ICD-10-PCS; principal; 2017-04-03)
DX: J93.83 Other pneumothorax (principal); D50.9 Iron deficiency anemia, unspecified; Z87.442 Personal history of urinary calculi; Z83.3 Family history of diabetes mellitus
CPT/HCPCS: 32551; 36415; 71010; 71020; 71021; 80053; 81001; 83540; 84702; 85025; 85610; 87040; 96374; 96375; 99291; J0696; J2001; J2405

== ENCOUNTER 2017-05-03 16:40 | Inpatient (IN) | payer MEDICAID ==
[~2017-05-03] VITALS: Ht 175.3 cm; Wt 62.1 kg
[~2017-05-03 16:40] MED LIST changes: +CHOL500023 PO; +FERR324T11 PO; +TRAM50TA2 PO
[2017-05-03] MEDS ORDERED: KETOROLAC TROMETH 30 MG/ML 1ML VIAL IV ONE (18:00)
[2017-05-03] MEDS ORDERED: SODIUM CHLORIDE 0.9% 1,000 ML IV ONE (18:00)
[2017-05-03] MEDS ORDERED: LORazepam 2MG/ML-1ML VIAL IV ONE (18:00)
[2017-05-03 18:40] LABS: Eosinophils # (auto) 0 uL; Hemoglobin 11.2 g/dL (12.2-16.2); Monocytes # (auto) 0.4 uL; White Blood Cell 5.9 10^3/uL (4.4-10.8)
[2017-05-03 18:42] LABS: Basophils # (auto) 0 uL; Basophils % (auto) 0.7 % (0.0-2.0); Eosinophils % (auto) 0.4 % (0.0-7.0); Hematocrit 34.6 % (36.0-46.0); Lymphocytes # (auto) 1.5 uL; Lymphocytes % (auto) 25.4 % (10.0-50.0); Mean Corpuscular Hemoglobin 24.6 pg (28.0-32.0); Mean Corpuscular Hgb Conc. 32.3 g/dL (32.0-36.0); Mean Corpuscular Volume 76.3 fL (80.0-100.0); Monocytes % (auto) 6.4 % (0.0-12.0); Neutrophils % (auto) 67.1 % (37.0-80.0); Nucleated Red Blood Cells % 0.1 %; Platelet Count (auto) 234 10^3/uL (140-450); Red Cell Distribution Width 19.1 % (11.8-14.3)
[2017-05-03 18:57] LABS: Albumin 3.9 g/dL (3.4-5.0); BUN/Creatinine Ratio 17.2; Bilirubin, Total 1.3 mg/dL (0.2-1.0); Calcium 8.7 mg/dL (8.5-10.1); Potassium 3.8 mmol/L (3.5-5.1)
[2017-05-03 20:08] LABS: Platelet Estimate Adequate
[2017-05-03 20:09] LABS: Anisocytosis Slight; Hypochromia Slight
[2017-05-03] MEDS ORDERED: HYDROcodone-ACET 5/325MG TAB PO PRN (23:45)
[2017-05-03] MEDS ORDERED: TEMAZEPAM 15 MG CAP PO PRN (23:45)
[2017-05-03] MEDS ORDERED: ONDANSETRON HCL 4 MG/2 ML VIAL IV PRN (23:45)
[2017-05-03] MEDS ORDERED: MORPHINE SULFATE 10 MG/ML INJ 1ML SDV IV PRN (23:45)
[2017-05-03] MEDS ORDERED: ACETAMINOPHEN 500 MG TAB PO PRN (23:45)
[2017-05-03] MEDS ORDERED: NITROGLYCERIN 0.4 MG SL TAB SL PRN (23:45)
[2017-05-04 01:10] VITALS: BP 104/69
[2017-05-04 01:16] VITALS: BP 104/69
[2017-05-04] MEDS ORDERED: FERR18TA2 PO (01:34)
[2017-05-04] MEDS ORDERED: CHOL20009 PO (01:34)
[2017-05-04 05:56] VITALS: BP 92/46
[2017-05-04 07:41] LABS: INR 1.06 (0.9-1.15); Partial Thromboplastin Time 26.6 sec (22.64-33.71); Prothrombin Time 11.6 sec (9.37-12.3)
[2017-05-04 08:02] LABS: Albumin 3.1 g/dL (3.4-5.0); BUN/Creatinine Ratio 23.5; Bilirubin, Total 1.7 mg/dL (0.2-1.0); Calcium 8.2 mg/dL (8.5-10.1); Potassium 3.7 mmol/L (3.5-5.1); Total Protein 6.7 g/dL (6.4-8.2)
[2017-05-04 08:52] VITALS: BP 99/60
[2017-05-04 12:43] VITALS: BP 104/68
[2017-05-04 14:39] VITALS: BP 102/64
== END 2017-05-04 16:20 | disposition home or self-care (01) | DRG 143 ==
LOC: ER 16:46 → TELE 16:47 → TELE-WESTW 05-04 00:55
PROVIDERS: ADMIT Nurse Practitioner Family; ATTEND Internal Medicine
DX: J93.83 Other pneumothorax (principal); E44.0 Moderate protein-calorie malnutrition; E88.09 Other disorders of plasma-protein metabolism, not elsewhere classified; Z68.20 Body mass index [BMI] 20.0-20.9, adult; Z87.442 Personal history of urinary calculi; Z83.3 Family history of diabetes mellitus
CPT/HCPCS: 36415; 71010; 71020; 71250; 80053; 85025; 85610; 85730; 96361; 96374; 96375; 99291; J1885